=== PATIENT | female | born 1965 | race Caucasian/White ===

== ENCOUNTER 2019-05-06 14:29 | Inpatient (IN) | payer BC ==
[~2019-05-06] VITALS: Ht 172.7 cm; Wt 86.0 kg
[2019-05-06] MEDS ORDERED: thiamine inj. 100 MG, magnesium sulf injection 2 GM, MVI, adult No.4 with vit. K 10 ML ... IV STA ×4 (16:06)
[2019-05-06] MEDS ORDERED: LORazepam 2 mg/ml vial IV ONE ×2 (16:10→17:45)
[2019-05-06] MEDS ORDERED: normal saline 1000ML IV soln IVB ONE (16:10)
[2019-05-06] MEDS ORDERED: [UNRECOGNIZED DRUG - REMARK] IV ONE ×2 (16:15)
[2019-05-06] MEDS ORDERED: thiamine inj. 100 MG, magnesium 1 gm/2ml inj. 2 GM in normal saline 100ml IV soln 100 ML IV ONE (16:20)
[2019-05-06] MEDS ORDERED: normal saline 1000ml 1,000 ML IV ONE (17:45)
[2019-05-06 18:14] LABS: ALANINE AMINOTRANSFERASE 121 U/L (12-78); ALBUMIN 3.3 G/DL (3.4-5.0); ALBUMIN/GLOBULIN RATIO 0.6 (1.1-1.5); ALKALINE PHOSPHATASE 120 IU/L (46-116); ANION GAP 13 (8-16); ASPARTATE AMINO TRANSFERASE 247 U/L (10-37); BLOOD UREA NITROGEN 8 MG/DL (7-18); BUN/CREATININE RATIO 10.8 (6.6-38.0); CALCIUM 8.1 MG/DL (8.5-10.1); CHLORIDE 103 MMOL/L (99-107); CREATININE 0.74 MG/DL (0.40-0.90); ETHANOL 0.068 GM/DL (0.0-0.010); GLUCOSE 81 MG/DL (70-104); MAGNESIUM 1.3 MG/DL (1.5-2.4); POTASSIUM 3.8 MMOL/L (3.5-5.1); SODIUM 140 MMOL/L (135-145); TOTAL CARBON DIOXIDE 24.2 MMOL/L (24-32); TOTAL PROTEIN 8.9 G/DL (6.4-8.2); eGFR 82 ML/MIN
[2019-05-06 18:21] LABS: BASOPHILS % (AUTO) 0.3 % (0-1); EOSINOPHILS % (AUTO) 0.2 % (0-6); HEMATOCRIT 35.9 % (35.0-45.0); HEMOGLOBIN 12.5 g/dl (12.0-16.0); LYMPHOCYTES # (AUTO) 0.7 X10'3 (1.1-4.8); LYMPHOCYTES % (AUTO) 17.7 % (21-51); MEAN CORPUSCULAR HEMOGLOBIN 37.6 PG (27.0-31.0); MEAN CORPUSCULAR HGB CONC 34.8 g/dL (33.0-36.5); MEAN CORPUSCULAR VOLUME 108.1 FL (78-98); MONOCYTES # (AUTO) 0.3 X10'3 (0-0.9); MONOCYTES % (AUTO) 6.8 % (2-12); NEUTROPHILS # (AUTO) 3.1 X10'3 (1.8-7.7); RED BLOOD COUNT 3.32 X10'6 (4.20-5.60); RED CELL DISTRIBUTION WIDTH 12.9 % (11.5-14.5); WHITE BLOOD COUNT 4.1 X10'3 (4.5-11.0)
[2019-05-06 18:25] LABS: PLATELET COUNT 20 X10'3 (140-440)
[2019-05-06] MEDS ORDERED: CefTRIAXone 2gm/D5W 50ml 50 ML IV ONE (18:25)
[2019-05-06] MEDS ORDERED: magnesium 2GM in 50ml NS 50 ML IV ONE (18:25)
[2019-05-06 18:43] LABS: LIPASE 305 U/L (73-393)
[2019-05-06] MEDS ORDERED: NO HOME MEDS (18:47)
[2019-05-06] MEDS ORDERED: METH-603 PO (18:49)
--- NOTE | 2019-05-06 19:14 | NUR ---
PT JUST RETURNED FROM CT OF ABD PELVIS FOR C/O ABD PAIN. SHE IS NOW AWAITING HOSPITALST. RECEIVING 2ND OF 3 LITERS NS BOLUS. ALSO INFUSING THIAMINE/MG IVPB, ROCEFIN IBPB, AND MVI INFUSION, AND MG 2GM IVPB.
[2019-05-06] MEDS ORDERED: CARB100T3 PO (19:23)
[2019-05-06] MEDS ORDERED: LORA-269 PO (19:23)
[2019-05-06 19:55] LABS: CLARITY,URINE CLEAR (Clear); COLOR,URINE YELLOW (Yellow); GLUCOSE, URINE NEGATIVE (Neg); KETONES,URINE NEGATIVE (Neg); LEUKOCYTE ESTERASE ,URINE NEGATIVE (Neg); NITRITES, URINE NEGATIVE (Neg); OCCULT BLOOD,URINE NEGATIVE (Neg); PH,URINE 6.5 (4.8-8.0); PROTEIN,URINE NEGATIVE (Neg)
[2019-05-06] MEDS ORDERED: LORazepam 2 mg/ml vial IV PRN (20:05)
[2019-05-06] MEDS ORDERED: metoclopramide 5 mg/ml inj IV PRN (20:05)
[2019-05-06] MEDS ORDERED: acetaminophen 325mg tablet PO PRN (20:05)
[2019-05-06] MEDS ORDERED: dextrose 50%-water 50ml dispensing syringe IV PRN (20:05)
[2019-05-06] MEDS ORDERED: mag hydrox/Alum hydrox/simeth 30ml oral suspension PO PRN (20:05)
[2019-05-06] MEDS ORDERED: haloperidol lactate 5mg/ml inj IM PRN (20:05)
[2019-05-06] MEDS ORDERED: thiamine 100mg/ml 2ml inj. IV ONE (20:05)
[2019-05-06] MEDS ORDERED: morphine 2 MG/ML inj. syringe IV PRN ×2 (20:05)
[2019-05-06] MEDS ORDERED: ondansetron/PF 4mg/2ml inj IV PRN (20:05)
[2019-05-06] MEDS ORDERED: magnesium hydroxide 30ml (MOM) UD suspension PO PRN (20:05)
[2019-05-06 20:12] LABS: UA COLLECTION TYPE CLN CATCH MIDSTREAM
[2019-05-06 21:10] VITALS: BP 138/71
--- NOTE | 2019-05-06 21:24 | NUR ---
Patient in room PCU 3025. I have received report from Marisela BHAKTA and had the opportunity to ask questions and assume patient care.
[2019-05-06] MEDS ORDERED: potassium CL 10mEq/100ml bag 100 ML IV PRN (22:25)
[2019-05-06] MEDS ORDERED: potassium Cl 20 mEq SR tablet PO PRN ×2 (22:25)
[2019-05-06] MEDS: nicotine 14mg patch - 24hr TD SCH (23:13)
[2019-05-06] MEDS: LORazepam 2 mg/ml vial IV PRN (23:14)
[2019-05-07 02:30] VITALS: BP 134/90
[2019-05-07] MEDS: LORazepam 2 mg/ml vial IV PRN ×7 (05:10→23:20)
--- NOTE | 2019-05-07 06:00 | NUR ---
Orientee documentation: I have reviewed and agree with all interventions, assessments performed and documented by Eder BHAKTA.
--- NOTE | 2019-05-07 06:11 | NUR ---
Problems reprioritized. Patient report given, questions answered & plan of care reviewed with Heidi BHAKTA.
--- NOTE | 2019-05-07 06:15 | NUR ---
Patient in room PCU 3025. I have received report from LIVIA Puga and had the opportunity to ask questions and assume patient care.
[2019-05-07 08:18] LABS: BASOPHILS % (AUTO) 0.6 % (0-1); EOSINOPHILS % (AUTO) 0.8 % (0-6); HEMATOCRIT 33.1 % (35.0-45.0); HEMOGLOBIN 11.6 g/dl (12.0-16.0); LYMPHOCYTES # (AUTO) 1.4 X10'3 (1.1-4.8); LYMPHOCYTES % (AUTO) 34.5 % (21-51); MEAN CORPUSCULAR HEMOGLOBIN 37.5 PG (27.0-31.0); MEAN CORPUSCULAR HGB CONC 35.2 g/dL (33.0-36.5); MEAN CORPUSCULAR VOLUME 106.5 FL (78-98); MEAN PLATELET VOLUME 9.2 FL (7.4-10.4); MONOCYTES # (AUTO) 0.5 X10'3 (0-0.9); MONOCYTES % (AUTO) 13.1 % (2-12); RED BLOOD COUNT 3.11 X10'6 (4.20-5.60); WHITE BLOOD COUNT 3.9 X10'3 (4.5-11.0)
[2019-05-07 08:33] LABS: PLATELET COUNT 12 X10'3 (140-440)
[2019-05-07 08:35] LABS: ALANINE AMINOTRANSFERASE 100 U/L (12-78); ALBUMIN 2.8 G/DL (3.4-5.0); ALBUMIN/GLOBULIN RATIO 0.5 (1.1-1.5); ALKALINE PHOSPHATASE 101 IU/L (46-116); ANION GAP 7 (8-16); ASPARTATE AMINO TRANSFERASE 185 U/L (10-37); BILIRUBIN,TOTAL 1.8 MG/DL (0.1-1.0); BLOOD UREA NITROGEN 8 MG/DL (7-18); CALCIUM 7.5 MG/DL (8.5-10.1); CHLORIDE 105 MMOL/L (99-107); CREATININE 0.73 MG/DL (0.40-0.90); MAGNESIUM 1.9 MG/DL (1.5-2.4); PHOSPHORUS 2.8 MG/DL (2.3-4.5); POTASSIUM 3.7 MMOL/L (3.5-5.1); SODIUM 139 MMOL/L (135-145); TOTAL CARBON DIOXIDE 27.5 MMOL/L (24-32); eGFR 83 ML/MIN
[2019-05-07 08:36] LABS: CREATINE KINASE 165 U/L (26-192); GLUCOSE 84 MG/DL (70-104)
[2019-05-07] MEDS: nicotine 14mg patch - 24hr TD SCH (09:05)
[2019-05-07] MEDS ORDERED: potassium Cl 20 mEq SR tablet PO PRN ×2 (09:25)
[2019-05-07] MEDS ORDERED: dicyclomine 10 MG capsule PO PRN (09:25)
[2019-05-07] MEDS ORDERED: cloNIDine 0.1 mg tablet PO PRN (09:25)
[2019-05-07] MEDS ORDERED: haloperidol 5mg tablet PO PRN (09:25)
[2019-05-07] MEDS ORDERED: potassium CL 10mEq/100ml bag 100 ML IV PRN (09:25)
[2019-05-07] MEDS ORDERED: haloperidol lactate 5mg/ml inj IM PRN (09:25)
[2019-05-07] MEDS ORDERED: magnesium 4gm in 100ml NS 100 ML IV PRN (09:25)
[2019-05-07] MEDS ORDERED: magnesium Cl slow-release 64mg tablet PO PRN (09:25)
--- NOTE | 2019-05-07 10:03 | NUR ---
Phoned [facility] in [place] [phone] to verify dose of methadone that patient is currently taking. Verified that patient is taking 70 mg methadone daily.
--- NOTE | 2019-05-07 10:21 | NUR ---
[id number] MESSAGE: Ksenia Roy Rm 3025B Methadone Dose 70 [facility] qd [facility] with [facility]. Need ok for dose. LIVIA Rm ext [id number]
[2019-05-07 11:00] VITALS: BP 145/78
[2019-05-07] MEDS: dextrose 5%-normal saline 1,000 ML IV SCH ×2 (11:03→20:02)
[2019-05-07] MEDS: thiamine 100mg tablet PO SCH (11:03)
[2019-05-07] MEDS: folic acid 1mg tablet PO SCH (11:03)
--- NOTE | 2019-05-07 11:25 | NUR ---
pt has critical value Platlets 12. MD is aware and ordered additional lab tests.
--- NOTE | 2019-05-07 13:39 | NUR ---
Pt pulled out IV in her sleep. She bled quite a bit r/t low platlets. Paged PICC nurse for new extended IV with blood draw port as pt is a very hard stick.
[2019-05-07] MEDS ORDERED: methadone 10mg tablet PO ONE ×2 (14:55→19:00)
[2019-05-07 15:00] VITALS: BP 153/89
[2019-05-07 16:12] LABS: HIV ANTIBODY 1&2 RAPID NON-REACTIVE (Neg)
[2019-05-07 18:00] VITALS: BP 144/84
[2019-05-07] MEDS ORDERED: lactose-reduced food (Ensure High Protein) 237ml bottle PO SCH (18:00)
--- NOTE | 2019-05-07 18:22 | NUR ---
Problems reprioritized. Patient report given, questions answered & plan of care reviewed with LIVIA Sanabria.
--- NOTE | 2019-05-07 18:35 | NUR ---
Patient in room PCU 3028O. I have received report from LIVIA Cherry and had the opportunity to ask questions and assume patient care. Pt is fatigued, but A & O X4, denies CP, SOB, dizziness, rated pain 0/10.
[2019-05-07 22:00] VITALS: BP 154/89
[2019-05-08 02:00] VITALS: BP 160/78
[2019-05-08] MEDS: LORazepam 2 mg/ml vial IV PRN ×5 (02:12→07:53)
--- NOTE | 2019-05-08 03:34 | NUR ---
PAGER ID: [phone] MESSAGE: [place]: Ksenia Roy Room # 3762 B PAGER ID: [phone] MESSAGE: Right Arm : Gram positive cocci in clusters seen in aerobic bottle.
[2019-05-08] MEDS: dextrose 5%-normal saline 1,000 ML IV SCH (05:17)
[2019-05-08 05:32] LABS: ALANINE AMINOTRANSFERASE 94 U/L (12-78); ALBUMIN 2.9 G/DL (3.4-5.0); ALBUMIN/GLOBULIN RATIO 0.5 (1.1-1.5); ALKALINE PHOSPHATASE 109 IU/L (46-116); ANION GAP 6 (8-16); BILIRUBIN,TOTAL 1.9 MG/DL (0.1-1.0); BLOOD UREA NITROGEN 7 MG/DL (7-18); BUN/CREATININE RATIO 9.6 (6.6-38.0); CHLORIDE 106 MMOL/L (99-107); CREATININE 0.73 MG/DL (0.40-0.90); MAGNESIUM 1.6 MG/DL (1.5-2.4); SODIUM 139 MMOL/L (135-145); TOTAL PROTEIN 8.2 G/DL (6.4-8.2); eGFR 83 ML/MIN
[2019-05-08 06:00] VITALS: BP 152/116
[2019-05-08 06:02] LABS: ASPARTATE AMINO TRANSFERASE 162 U/L (10-37); GLUCOSE 89 MG/DL (70-104); PHOSPHORUS 3.2 MG/DL (2.3-4.5); POTASSIUM 4.3 MMOL/L (3.5-5.1)
--- NOTE | 2019-05-08 06:28 | NUR ---
Problems reprioritized. Patient report given, questions answered & plan of care reviewed with LIVIA Kruse. Patient stable at shift change
[2019-05-08 07:38] LABS: BASOPHILS % (AUTO) 0.4 % (0-1); EOSINOPHILS % (AUTO) 1.4 % (0-6); HEMATOCRIT 34.5 % (35.0-45.0); HEMOGLOBIN 11.9 g/dl (12.0-16.0); LYMPHOCYTES # (AUTO) 1.1 X10'3 (1.1-4.8); LYMPHOCYTES % (AUTO) 33.1 % (21-51); MEAN CORPUSCULAR HEMOGLOBIN 37.1 PG (27.0-31.0); MEAN CORPUSCULAR HGB CONC 34.4 g/dL (33.0-36.5); MEAN CORPUSCULAR VOLUME 108.1 FL (78-98); MEAN PLATELET VOLUME 9.1 FL (7.4-10.4); MONOCYTES # (AUTO) 0.4 X10'3 (0-0.9); MONOCYTES % (AUTO) 13.1 % (2-12); NEUTROPHILS # (AUTO) 1.7 X10'3 (1.8-7.7); RED BLOOD COUNT 3.19 X10'6 (4.20-5.60); RED CELL DISTRIBUTION WIDTH 13.5 % (11.5-14.5); WHITE BLOOD COUNT 3.2 X10'3 (4.5-11.0)
[2019-05-08] MEDS: thiamine 100mg tablet PO SCH (07:53)
[2019-05-08] MEDS: nicotine 14mg patch - 24hr TD SCH (07:55)
[2019-05-08] MEDS: folic acid 1mg tablet PO SCH (07:55)
[2019-05-08 07:58] LABS: PLATELET COUNT 20 X10'3 (140-440)
[2019-05-08] MEDS ORDERED: multivitamins, therapeutics tablet PO SCH (08:00)
--- NOTE | 2019-05-08 08:14 | NUR ---
PAGER ID: [phone] MESSAGE: [id number] KAYLIE GRUBBS PULLED OUT PIV AND IS ZAIDA TO SAUL TAYLOR U 5441 Addendum: 05/08/19 at 9939 by Ester Oropeza RN Amended: Links added.
--- NOTE | 2019-05-08 08:28 | NUR ---
PT LEFT HOSPITAL AMA. SHE REFUSED TO WAIT TO TALK TO DR GLASGOW. I EXPLAINED HER MEDICAL CONDITION AND THE RISKS OF LEAVING AT THIS TIME. SHE PULLED OUT HER PIV. BLEEDING STOPPED ON ITS OWN DESPITE PLT COUNT OF 20. PT ARRANGING FOR A RIDE WITH HER . PT TAKEN DOWN TO AWAIT IN LOBBY. AMA FORM SIGNED BY PT. Addendum: 05/08/19 at 0839 by Ester Oropeza RN Amended: Links added.
--- NOTE | 2019-05-08 09:31 | NUR ---
Pt. removed IV, site is without hematoma.
--- NOTE | 2019-05-08 10:35 | NUR ---
Nutrition consult: Pt was with 50% and 100% PO intake on full liquid diet with 100% PO intake of Ensure High Protein. No edema or wounds. Overweight BMI. Pt was receiving MVI, Thiamine, and Folic acid d/t EtOH w/d. No nutrition intervention implemented as pt has left AMA although nutrition intervention not warranted. Addendum: 05/08/19 at [address] Amended: Links added.
[2019-05-09 08:09] LABS: HBSAG SCREEN Negative (Negative); HEP A AB, IGM Negative (Negative); HEP B CORE AB, IGM Negative (Negative); HEPATITIS C ANTIBODY >11.0 s/co ratio (0.0-0.9)
[2019-05-09] MEDS ORDERED: LORazepam 2 mg/ml vial IV PRN (09:25)
[2019-05-09] MEDS ORDERED: LORazepam 1 MG tablet PO PRN (09:25)
[2019-05-11] MEDS ORDERED: LORazepam 2 mg/ml vial IV PRN (09:25)
[2019-05-11] MEDS ORDERED: LORazepam 1 MG tablet PO PRN (09:25)
== END 2019-05-08 08:25 | disposition left against medical advice (07) | DRG 894 ==
LOC: ER 14:30 → ED HOLD 20:03 → EDBEDREQ 20:27 → PCU 3S 21:00
PROVIDERS: ADMIT Internal Medicine; ATTEND Family Medicine
DX: F10.230 Alcohol dependence with withdrawal, uncomplicated (principal); E87.2 Acidosis; D61.818 Other pancytopenia; B19.20 Unspecified viral hepatitis C without hepatic coma; D69.59 Other secondary thrombocytopenia; K70.30 Alcoholic cirrhosis of liver without ascites; Z53.29 Procedure and treatment not carried out because of patient's decision for other reasons; F12.10 Cannabis abuse, uncomplicated; F17.210 Nicotine dependence, cigarettes, uncomplicated; K70.10 Alcoholic hepatitis without ascites; Z91.19 Patient's noncompliance with other medical treatment and regimen; Z71.6 Tobacco abuse counseling; Z71.41 Alcohol abuse counseling and surveillance of alcoholic
CPT/HCPCS: 36415; 74176; 76937; 80053; 80320; 81003; 82140; 82550; 83605; 83690; 83735; 84100; 84145; 85025; 85610; 86703; 86705; 86706; 86709; 86803; 87040; 87077; 87081; 87186; 87340; 93005; 96365; 96368; 96375; 96376; 97116; 97161; 97530; 99291; G0378; J0696; J2060; J3411; J3475; J7042; J7060

== ENCOUNTER 2020-09-08 06:17 | Day surgery (SDC) | payer BC ==
[~2020-09-08] VITALS: Ht 172.7 cm; Wt 82.4 kg
[~2020-09-08 06:17] MED LIST: CARB100T3 PO; LORA-269 PO; METH-603 PO
[2020-09-08] MEDS ORDERED: albumin 25% 100mL bottle x 1 IV PRN (06:40)
[2020-09-08] MEDS ORDERED: THIA100T70 PO (07:00)
[2020-09-08] MEDS ORDERED: RIFA550T PO (07:00)
[2020-09-08] MEDS ORDERED: MIDO2.5T14 PO (07:00)
[2020-09-08] MEDS ORDERED: LACT10SO3 PO (07:00)
[2020-09-08] MEDS ORDERED: SPIR50TA5 PO (07:00)
[2020-09-08] MEDS ORDERED: OMEP40CA13 PO (07:00)
[2020-09-08] MEDS ORDERED: FOLI0.4T6 PO (07:00)
[2020-09-08] MEDS ORDERED: FURO-150 PO (07:00)
[2020-09-08] MEDS ORDERED: FLO0.4C PO (07:00)
[2020-09-08 07:03] VITALS: BP 92/63
== END 2020-09-08 09:00 | disposition home or self-care (01) ==
LOC: SSTAY O 06:17
PROVIDERS: ATTEND Radiology Diagnostic Radiology
DX: K70.31 Alcoholic cirrhosis of liver with ascites (principal); Z53.8 Procedure and treatment not carried out for other reasons; R14.0 Abdominal distension (gaseous); K72.90 Hepatic failure, unspecified without coma; Z87.440 Personal history of urinary (tract) infections; E46 Unspecified protein-calorie malnutrition; E87.1 Hypo-osmolality and hyponatremia; F11.20 Opioid dependence, uncomplicated; Z98.890 Other specified postprocedural states; Z79.899 Other long term (current) drug therapy
CPT/HCPCS: 76705

== ENCOUNTER 2020-10-07 06:10 | Day surgery (SDC) | payer BC ==
[~2020-10-07] VITALS: Ht 170.2 cm; Wt 95.7 kg
[~2020-10-07 06:10] MED LIST changes: -CARB100T3 PO; +FLO0.4C PO; +FOLI0.4T6 PO; +FURO-150 PO; +LACT10SO3 PO; -LORA-269 PO; -METH-603 PO; +MIDO2.5T14 PO; +OMEP40CA13 PO; +RIFA550T PO; +SPIR50TA5 PO; +THIA100T70 PO
[2020-10-07] MEDS ORDERED: albumin 25% 100mL bottle x 1 IV PRN (06:40)
[2020-10-07 07:11] VITALS: BP 107/70
== END 2020-10-07 08:35 | disposition home or self-care (01) ==
LOC: SSTAY O 06:10
PROVIDERS: ATTEND Radiology Diagnostic Radiology
DX: K70.31 Alcoholic cirrhosis of liver with ascites (principal); Z53.8 Procedure and treatment not carried out for other reasons; R14.0 Abdominal distension (gaseous); K72.90 Hepatic failure, unspecified without coma; E87.1 Hypo-osmolality and hyponatremia; E46 Unspecified protein-calorie malnutrition; Z87.440 Personal history of urinary (tract) infections; Z87.891 Personal history of nicotine dependence; Z98.890 Other specified postprocedural states; Z79.899 Other long term (current) drug therapy
CPT/HCPCS: 76705

== ENCOUNTER 2020-10-21 08:18 | Outpatient (CLI) | payer BC | END 2020-10-21 23:59 | disposition home or self-care (01) | LOC: RAD 08:18 | PROVIDERS: ATTEND Student in an Organized Health Care Education/Training Program | DX: K76.0 Fatty (change of) liver, not elsewhere classified (principal); K74.60 Unspecified cirrhosis of liver; N26.1 Atrophy of kidney (terminal); R18.8 Other ascites | CPT/HCPCS: 76700 ==

== ENCOUNTER 2020-10-31 06:12 | Day surgery (SDC) | payer BC ==
[~2020-10-31] VITALS: Ht 170.2 cm; Wt 100.8 kg
[2020-10-31 06:52] VITALS: BP 114/71
[2020-10-31] MEDS ORDERED: albumin 25% 100mL bottle x 1 IV PRN (06:55)
[2020-10-31 08:34] VITALS: BP 111/71
[2020-10-31 08:55] VITALS: BP 101/56
[2020-10-31 09:05] VITALS: BP 97/62
== END 2020-10-31 09:10 | disposition home or self-care (01) ==
LOC: SSTAY O 06:12
PROVIDERS: ATTEND Radiology Vascular & Interventional Radiology
DX: K70.31 Alcoholic cirrhosis of liver with ascites (principal); K72.90 Hepatic failure, unspecified without coma; Z87.440 Personal history of urinary (tract) infections; F15.90 Other stimulant use, unspecified, uncomplicated; F11.21 Opioid dependence, in remission; E46 Unspecified protein-calorie malnutrition; E87.1 Hypo-osmolality and hyponatremia; Z98.890 Other specified postprocedural states; Z87.891 Personal history of nicotine dependence; Z79.899 Other long term (current) drug therapy
CPT/HCPCS: 49083

== ENCOUNTER 2020-12-08 06:54 | Day surgery (SDC) | payer BC ==
[~2020-12-08] VITALS: Ht 170.2 cm; Wt 104.3 kg
[2020-12-08] VITALS (11 sets, daily range): BP systolic 97–118; BP diastolic 52–76
[~2020-12-08 06:54] MED LIST changes: -OMEP40CA13 PO; +OMEP40CA21 PO
[2020-12-08] MEDS ORDERED: albumin 25% 100mL bottle x 1 IV PRN (07:30)
== END 2020-12-08 10:50 | disposition home or self-care (01) ==
LOC: SSTAY O 06:54
PROVIDERS: ATTEND Radiology Vascular & Interventional Radiology
DX: K70.31 Alcoholic cirrhosis of liver with ascites (principal); K72.90 Hepatic failure, unspecified without coma; Z87.440 Personal history of urinary (tract) infections; E87.1 Hypo-osmolality and hyponatremia; F11.21 Opioid dependence, in remission; F15.21 Other stimulant dependence, in remission; E46 Unspecified protein-calorie malnutrition; Z87.891 Personal history of nicotine dependence; Z79.899 Other long term (current) drug therapy
CPT/HCPCS: 49083; P9047

== ENCOUNTER → 2020-12-30 | Outpatient (CLI) | payer BC ==
[~2020-12-30] MED LIST changes: +iohexol 300mg/ml 100ml inj. ONE
== END | disposition home or self-care (01) ==
LOC: 64 CT 10:12
DX: K80.20 Calculus of gallbladder without cholecystitis without obstruction (principal); K74.60 Unspecified cirrhosis of liver; R18.8 Other ascites; I83.90 Asymptomatic varicose veins of unspecified lower extremity; R16.1 Splenomegaly, not elsewhere classified
CPT/HCPCS: 74170; Q9967

== ENCOUNTER 2021-01-03 07:03 | Day surgery (SDC) | payer BC ==
[2021-01-03] VITALS (14 sets, daily range): BP systolic 109–170; BP diastolic 63–83
[~2021-01-03] VITALS: Ht 170.2 cm; Wt 93.9 kg
[~2021-01-03 07:03] MED LIST changes: -iohexol 300mg/ml 100ml inj. ONE
[2021-01-03] MEDS ORDERED: POTA-82 PO (07:39)
--- NOTE | 2021-01-03 10:05 | NUR ---
Page sent to PICC nurse regarding need for IV. Pt unable to be discharged without medication therapy.
--- NOTE | 2021-01-03 10:12 | NUR ---
PICC nurse at bedside to insert IV for medication therapy.
[2021-01-03] MEDS: albumin 25% 100mL bottle x 1 IV PRN ×2 (10:30→11:30)
== END 2021-01-03 12:45 | disposition home or self-care (01) ==
LOC: SSTAY O 07:03
PROVIDERS: ATTEND Radiology Diagnostic Radiology
DX: K70.31 Alcoholic cirrhosis of liver with ascites (principal); K72.90 Hepatic failure, unspecified without coma; E87.1 Hypo-osmolality and hyponatremia; E46 Unspecified protein-calorie malnutrition; F10.21 Alcohol dependence, in remission; F11.21 Opioid dependence, in remission; Z87.891 Personal history of nicotine dependence; Z87.440 Personal history of urinary (tract) infections; Z79.899 Other long term (current) drug therapy
CPT/HCPCS: 49083; P9047

== ENCOUNTER 2021-03-27 11:05 | Outpatient (CLI) | payer BC ==
[~2021-03-27 11:05] MED LIST changes: -FLO0.4C PO; -FOLI0.4T6 PO; -LACT10SO3 PO; -MIDO2.5T14 PO; +POTA-82 PO; -THIA100T70 PO
== END 2021-03-27 23:59 | disposition home or self-care (01) ==
LOC: RAD 11:05
PROVIDERS: ATTEND Internal Medicine Gastroenterology
DX: K74.60 Unspecified cirrhosis of liver (principal)
CPT/HCPCS: 76700

== ENCOUNTER 2022-07-25 09:13 | Outpatient (CLI) | payer BC ==
[~2022-07-25 09:13] MED LIST changes: +FOLI1TAB27 PO; +FURO-149 PO; -FURO-150 PO; +LEVO-65 PO; -POTA-82 PO
== END 2022-07-25 23:59 | disposition home or self-care (01) ==
LOC: RAD 09:13
PROVIDERS: ATTEND Internal Medicine
DX: K70.31 Alcoholic cirrhosis of liver with ascites (principal); B19.20 Unspecified viral hepatitis C without hepatic coma; K76.89 Other specified diseases of liver
CPT/HCPCS: 76700

== ENCOUNTER 2023-10-24 14:13 | Emergency (ER) | payer BC ==
[~2023-10-24] VITALS: Ht 170.2 cm; Wt 90.9 kg
[2023-10-24 14:13] VITALS: BP 138/88; PULSE 83; O2SAT 94
[2023-10-24] MEDS ORDERED: ketorolac trometh inj. 60 MG/2 ML VIAL IM ONE (14:55)
[2023-10-24] MEDS: ketorolac tromethamine 15mg/ml inj. IM ONE (15:25)
[2023-10-24 16:01] VITALS: RESP 18; TEMP 98
== END 2023-10-24 16:03 | disposition home or self-care (01) ==
LOC: ER 14:13
DX: S52.122A Displaced fracture of head of left radius, initial encounter for closed fracture (principal); S52.002A Unspecified fracture of upper end of left ulna, initial encounter for closed fracture; Z79.899 Other long term (current) drug therapy; Z79.2 Long term (current) use of antibiotics; X58.XXXA Exposure to other specified factors, initial encounter; Y93.89 Activity, other specified; Y92.89 Other specified places as the place of occurrence of the external cause; Y99.8 Other external cause status
CPT/HCPCS: 29105; 73090; 96372; 99284; J1885; A4565; A6449